=== PATIENT | male | born 1960 | race Caucasian/White ===

== ENCOUNTER → 2021-02-26 17:01 | Outpatient (CLI) | payer OTHER, SELFPAY ==
[2021-02-26 18:30] LABS: Basophils % 0.8 % (0.1-2.0); Eosinophils % 1.1 % (0.1-12.0); Hematocrit 46.9 % (42.0-52.0); Hemoglobin 15.6 g/dL (14.1-18.0); Lymphocytes % 25.6 % (10-50); Mean Corpuscular HGB Conc 33.2 g/dL (31.8-35.4); Mean Corpuscular Hemoglobin 32.5 pg (27.0-31.2); Mean Corpuscular Volume 97.9 fl (80-94); Mean Platelet Volume 9.5 fl (7.4-10.4); Monocytes # 0.3 K/mm3 (0.1-1.0); Monocytes % 8.3 % (1.7-9.3); Neutrophils # 2.5 K/mm3 (1.8-7.8); Neutrophils % 64.2 % (37.0-80.0); Platelet Count 214 K/mm3 (142-424); Red Cell Distribution Width 15.6 % (11.5-17.5); White Blood Count 3.9 K/mm3 (4.8-10.8)
[2021-02-26 18:38] LABS: Alanine Aminotransferase 11 U/L (12-78); Albumin Level 4.2 g/dl (3.5-5.0); Albumin/Globulin Ratio 1.5 (1.1-1.8); Alkaline Phosphatase 110 U/L (38-126); Aspartate Amino Transferase 19 U/L (17-59); Bilirubin,Total 0.7 mg/dl (0.2-1.3); Blood Urea Nitrogen 11 mg/dl (9-20); Calcium 9.6 mg/dl (8.4-10.2); Carbon Dioxide 15 mmol/L (22.0-30.0); Chloride 103 mmol/L (98-107); Chol/HDL Ratio 4.7 (1-3.5); Cholesterol 289 mg/dl (140-200); Estimated Glomerular Filt Rate 86 ml/min (>60); GFR (African American) 105 ML/MIN (>60); Globulin 2.8 g/dL (1.3-3.2); Glucose 275 mg/dl (74-100); HDL Cholesterol 62 mg/dl (40-60); Sodium 137 mmol/L (136-145); Triglycerides 218 mg/dl (30-150); VLDL Cholesterol 44 mg/dL (0-40)
[2021-02-26 18:50] LABS: Direct LDL Cholesterol 187.92 mg/dL (100-129)
[2021-02-26 18:54] LABS: Free T4 (Free Thyroxine) 1.12 ng/dl (0.78-2.19)
[2021-02-26 18:57] LABS: 25-OH Vitamin D, Total 28.5 ng/mL (30-100)
[2021-02-26 19:10] LABS: Prostate Specific Ag Screen 0.9 ng/ml (0.0-4.0)
== END ==
PROVIDERS: Visit Provider Nurse Practitioner Family
DX: R63.4 Abnormal weight loss (principal); E55.9 Vitamin D deficiency, unspecified; Z12.5 Encounter for screening for malignant neoplasm of prostate
CPT/HCPCS: 80053; 80061; 82306; 84439; 84443; 85025; G0103

== ENCOUNTER → 2021-03-16 06:58 | Outpatient (CLI) | payer OTHER, SELFPAY ==
--- NOTE | 2021-03-16 07:00 | CA_ITS ---
APPROVED REPORT EXAM: Comprehensive 2D, Doppler, and color-flow Echocardiogram Wood Tool Maker: LING Reddy, RVS Ht: 5 ft 6 in Wt: 147lbs BSA: 1.75 BP: 130/60 mmHg Indications: murmur, fatigue, weight loss, exsmoker Echo Enhancing Agent Comments: TDS:Extreme low parasternal windows with lung impedence 2D Dimensions IVSd 0.94 cm LVEF (Visual) 53.30 % PWd 0.94 cm LA Volume 27.10 mL LVDd 3.58 cm LA Volume Index 15.50 mL/m2 (M/F) 16-34 LVDs 2.62 cm Aortic Root 4.03 cm Left Atrium 1.80 cm LVOT 1.91 cm (M/F) 1.5-2.5 M-Mode Dimensions LA Diam 3.01 cm (1.9-4.0) Ao Diam 4.23 cm (2.0-3.7) EPSs 0.30 cm TAPSE 1.76 (<1.7) LV Diastology E Decel Time 173.00 (160-240 msec) E/A Ratio 0.94 MED E' 6.50 (< 7 cm/sec) MED A' 10.20 cm/s E'/MED E' Ratio 7.57 (>14) LAT E' 8.20 (<10 cm/sec) LAT A' 9.60 cm/s E/LAT E' Ratio 6.00 (>14) Aortic Valve LVOT Max 63.00 (70-110 cm/s) LVOT VTI 13.84 cm AoV Peak Karthikeyan. 84.00 (50-130 cm/s) AI PHT 616.00 ms AO Peak GR. 2.90 mmHg AO Mean GR. 1.40 (<5 mmHg) AO VTI 16.28 (18-25 cm) ROLANDO (VTI) 2.44 (2.5-4.5 cm2) Mitral Valve MV A Velocity 52.00 (40-130 cm/s) E/A Ratio 0.94 MV Decel. Time 173.00 (160-240 ms) Pulmonary Valve MS End VMAX 91.00 cm/s Tricuspid Valve TR P. Velocity 224.00 cm/s RAP Estimate 10.00 mmHg RVSP 30.10 mmHg Left Ventricle Left atrium is mildly enlarged, left ventricle is normal size, mild concentric left ventricular hypertrophy, visually estimated ejection fraction 55% with no regional wall motion abnormality, grade 1 diastolic dysfunction seen without tissue Doppler evidence of raise left atrial pressure. Right Ventricle Right atrium right ventricle mildly enlarged with normal contractility. Aortic Valve Aortic valve is minimally thickened and fibrosed, there is no aortic stenosis or aortic insufficiency. Mitral Valve Mitral valve is grossly normal, there is trace mitral regurgitation. Tricuspid Valve Tricuspid valve grossly normal, there is trace tricuspid regurgitation tricuspid regurgitation jet velocity is inadequate for calculation of the right ventricular systolic pressure. Pulmonic Valve Pulmonic valve is poorly visualized. Great Vessels Aortic root is normal size. Pericardium No significant pericardial effusion noted. Conclusion 1. Mild biatrial enlargement, normal left ventricular size, mild concentric left ventricular hypertrophy, visually estimated ejection fraction 55% with no regional wall motion abnormality, grade 1 diastolic dysfunction seen without tissue Doppler evidence of raise left atrial pressure. 2. Mildly enlarged right ventricle with normal contractility. 3. Trace mitral and tricuspid regurgitation. 4. No significant pericardial effusion noted. Electronically signed by : Elliot Peres MD 03/16/2021 19:25:03
--- NOTE | 2021-03-16 07:00 | CT_ITS ---
PROCEDURE: CT LUNG SCREENING CLINICAL INDICATION: lung cancer screening COMPARISON: No exams were available for comparison TECHNIQUE: The exam was performed on a GE Light Speed [address] scanner using 2.90 mGy CTDI. A low dose helical CT CHEST was performed on a multi-detector scanner. All CT scans at the facility use one or more dose reduction, viz: automated exposure control, ma/kV adjustment per patient size (including targeted exams where dose is matched to indication, i.e. head), or iterative reconstruction technique. The LDCT was performed in a facility that meets the criteria for the screening program. Data regarding this exam was submitted to ACR which is an approved registry. The order for this exam indicates that it came as a result of a lung cancer screening counseling shard decision-making visit that included all the elements required of such a visit including smoking cessation. The radiologist interpreting this exam meets the CMS criteria for the LDCT lung cancer screening program. The exam is reported using the Lung-RADS classification scale and reported to the ACR registry. NOTE: This study was performed for the specific purposes of lung cancer screening and is not an alternative to diagnostic chest CT. RADIATION DOSE: CTDI vol(CT dose Index-volume) = 2.90mG DLP (Dose Length Product) = 121.16 mGcm FINDINGS: COPD changes with evidence of old granulomatous disease. No suspicious nodules evident. OTHER FINDINGS: Wedge compression changes involve the L1 vertebral body with loss of height anteriorly of 50 percent with mild kyphosis and minimal retropulsion of the posterior superior aspect of L1 by approximately 4 mm. This compression fracture appears chronic. IMPRESSION: Lung-RADS Category 1 Negative Follow-up: Continue annual screening with LDCT in 12 months Chronic wedge compression fracture of L1 Dictated by: Dc Sawyer MD 04/05/2021 08:10 Dc Sawyer MD in [place] 04/05/2021 08:10
== END ==
PROVIDERS: PCP Nurse Practitioner Family; Visit Provider Nurse Practitioner Family
DX: Z87.891 Personal history of nicotine dependence (principal); Z12.2 Encounter for screening for malignant neoplasm of respiratory organs; R53.83 Other fatigue
CPT/HCPCS: 71271; 93306

== ENCOUNTER → 2021-04-12 13:49 | Outpatient (CLI) | payer OTHER, SELFPAY ==
[2021-04-12 14:02] LABS: Magnesium 1.9 mg/dl (1.6-2.3)
[2021-04-12 15:09] LABS: Folate 6.93 ng/mL; Vitamin B12 601 pg/mL (239-931)
[2021-04-12 21:21] LABS: Hemoglobin A1C > 14.0 % (4.0-6.0)
== END ==
PROVIDERS: Visit Provider Family Medicine
DX: E11.9 Type 2 diabetes mellitus without complications (principal); E53.8 Deficiency of other specified B group vitamins; R20.0 Anesthesia of skin
CPT/HCPCS: 82607; 82746; 83036; 83735

== ENCOUNTER → 2021-05-12 18:23 | Outpatient (CLI) | payer OTHER, SELFPAY ==
[2021-05-12 20:02] LABS: Microalbumin < 6.000 mg/L (0-16.7)
[2021-05-14 11:12] LABS: C-Peptide 1.1 ng/mL (1.1-4.4)
== END ==
PROVIDERS: Visit Provider Nurse Practitioner Family
DX: E11.9 Type 2 diabetes mellitus without complications (principal); Z79.4 Long term (current) use of insulin
CPT/HCPCS: 82043; 84681

== ENCOUNTER 2021-06-25 17:00 | Outpatient (RCR) | payer OTHER, SELFPAY ==
--- NOTE | 2021-04-20 10:00 | [facility].PTOPEV ---
PT Outpatient Evaluation Rehab PT Outpatient Evaluation Start: 04/20/21 09:02 Freq: Status: Active Protocol: Document 04/20/21 09:42 EILEEN (Rec: 04/20/21 09:59 EILEEN [id number]) Electronically Signed By Balwinder Galvin, PT 04/20/21 09:42 Outpatient Therapy Subjective History Subjective History Patient is a 61 year old male presenting to outpatient PT with reports of LBP with RLE radicular symptoms resulting in R foot drop. Symptoms of insidious onset starting approx 2 months ago. Sensory and motor function consistent with L4-S1 dermatome/myotome. No recent imaging to report. Comorbidities include hx of HL, hyperthyroidism and pre- diabetes. Chief Complaint Pain,Stiff,Clicks,Paresthesia, Weakness Symptom Type Sharp,Dull,Numbness,Tingling Symptoms Relieved By Rest/Positioning Current Functional Limitations Lifting,Housework,Standing, Walking,Balance Symptom Description Constant but Variable Level of pain today (0-10) 1 Pain scale - at its best (0-10) 1 Pain scale - at its worst (0-10) 7 Lumbopelvic Eval Palapation tenderness bilateral lumbar spinal tenderness Yes: L3-S1 3/4 paraspinal tenderness Yes: buttock tenderness Yes: Accessory Movement L3 bilateral L4 bilateral L5 bilateral S1 bilateral Range of Motion Lumbar Spine Active Flexion Range of 82 Motion (degrees) Lumbar Spine Active Extension Range of 15 inc NT Motion (degrees) Left Lumbar Spine Lateral Flexion Active 15 Range of Motion (degrees) Right Lumbar Spine Lateral Flexion 15 Active Range of Motion (degrees) Lumbar Spine ROM Limitations Soft Tissue Tightness,Bony Restriction Manual Muscle Test Right Knee Extension Strength Grade 5 Normal Knee Flexion Strength Grade 5 Normal Hip Flexion Strength Grade 5 Normal Extensor Hallucis Longus Strength Grade 5 Normal Ankle Dorsiflexion Strength Grade 5 Normal Gastronemius/Soleus Strength Grade 5 Normal Left Knee Extension Strength Grade 4 Good Knee Flexion Strength Grade 5 Normal Hip Flexion Strength Grade 4- Good- Extensor Hallucis Longus Strength Grade 3 Fair Ankle Dorsiflexion Strength Grade 2+ Poor+ Gastronemius/Soleus Strength
--- NOTE | 2021-06-11 17:39 | [facility].RHREAS ---
Rehab Reassessment Rehab OP Re-assessment Start: 06/11/21 17:12 Freq: Status: Active Protocol: Document 06/11/21 17:16 EILEEN (Rec: 06/11/21 17:38 EILEEN [id number]) Electronically Signed By Balwinder Galvin, PT 06/11/21 17:16 Rehab Re-assessment Subjective Subjective Patient reports slightly improved ankle dorsiflexion and intermittent relief post- Rx. Objective Objective Notes AROM: 85; 18; SBr 20; SBl 18 MMT: HF 4/5; HS 5/5; Knee ext 5/5; DF 3+/5; Gastroc 4+/5; ECL 3+/5 Pain: 4/10 today; 8/10 at worst over past week Neuro: persistent foot drop and NT to L foot. Assessment Progress Assessment Slower Than Expected Assessment Notes Patient is tolerating progression well. Patient has been seen for 7 visits to date. Overall objective improvements as noted above. Patient experiences significant pain relief after Rx, with symptoms exacerbation when he returns to work related and houshold activities. Significant relief noted with mechanical traction. Patient compliant with HEP. Functional limitations with standing, walking bending and lifting activities persist. Patient goals met STG 2 Goals Not Met All others Revised Goals NA Plan Plan Continue with current POC. Frequency of Therapy 2x/week Duration of therapy 4 weeks Time and Billing Re-Eval Time 15 Re-Eval Billing Units 1 PHYSICIAN CERTIFICATION: I certify the specified therapy services for Giovanny Mcnair are required, authorized, and reviewed every 30 days.
== END 2021-06-25 17:05 | disposition home or self-care (01) ==
LOC: PT 17:00
PROVIDERS: PCP Nurse Practitioner Family; Visit Provider Family Medicine
DX: M21.371 Foot drop, right foot (principal); R20.0 Anesthesia of skin
CPT/HCPCS: 97010; 97012; 97014; 97110; 97163; 97164; 97760; G0283

== ENCOUNTER → 2021-08-27 16:00 | Outpatient (CLI) | payer OTHER, SELFPAY ==
[2021-08-27 18:56] LABS: Basophils % 0.5 % (0.1-2.0); Eosinophils # 0.1 K/mm3 (0.0-0.4); Eosinophils % 2.7 % (0.1-12.0); Hematocrit 44.9 % (42.0-52.0); Hemoglobin 15.4 g/dL (14.1-18.0); Lymphocytes # 1.5 K/mm3 (0.7-4.5); Lymphocytes % 30.4 % (10-50); Mean Corpuscular HGB Conc 34.4 g/dL (31.8-35.4); Mean Corpuscular Hemoglobin 33.2 pg (27.0-31.2); Mean Corpuscular Volume 96.5 fl (80-94); Monocytes # 0.3 K/mm3 (0.1-1.0); Neutrophils % 60.5 % (37.0-80.0); Platelet Count 193 K/mm3 (142-424); Red Blood Count 4.65 M/mm3 (4.60-6.20); Red Cell Distribution Width 12.7 % (11.5-17.5)
[2021-08-27 19:09] LABS: Alanine Aminotransferase 21 U/L (12-78); Albumin Level 4.3 g/dl (3.5-5.0); Albumin/Globulin Ratio 1.9 (1.1-1.8); Alkaline Phosphatase 74 U/L (38-126); Anion Gap 10.3 mEq/L (5-15); Aspartate Amino Transferase 27 U/L (17-59); Bilirubin,Total 0.6 mg/dl (0.2-1.3); Blood Urea Nitrogen 22 mg/dl (9-20); Calcium 9.3 mg/dl (8.4-10.2); Carbon Dioxide 27 mmol/L (22.0-30.0); Chloride 102 mmol/L (98-107); Chol/HDL Ratio 3.2 (1-3.5); Cholesterol 205 mg/dl (140-200); Estimated Glomerular Filt Rate 86 ml/min (>60); GFR (African American) 104 ML/MIN (>60); Globulin 2.3 g/dL (1.3-3.2); Glucose 204 mg/dl (74-100); HDL Cholesterol 65 mg/dl (40-60); Potassium 4.3 mmoL/L (3.5-5.1); Sodium 135 mmol/L (136-145); Total Protein,Serum 6.6 g/dl (6.3-8.2); Triglycerides 67 mg/dl (30-150); VLDL Cholesterol 13 mg/dL (0-40)
[2021-08-27 19:20] LABS: Direct LDL Cholesterol 115.03 mg/dL (100-129)
[2021-08-27 19:25] LABS: Hemoglobin A1C 8.8 % (4.0-6.0)
[2021-08-27 19:26] LABS: T4 (Thyroxine) 7.1 ug/dl (5.53-11.0)
== END ==
PROVIDERS: Visit Provider Nurse Practitioner Family
DX: E11.9 Type 2 diabetes mellitus without complications (principal); R53.83 Other fatigue; Z79.4 Long term (current) use of insulin
CPT/HCPCS: 80053; 80061; 83036; 84436; 84443; 85025